=== PATIENT | female | born 1985 | race Caucasian/White ===

== ENCOUNTER 2018-04-05 10:08 | Inpatient (IN) ==
[2018-04-05 12:11] LABS: EOS# 0.02 X1000 (0.0-0.7); EOS% 0.3 % (0.0-10.0); HEMATOCRIT 46.1 % (37.0-47.0); HEMOGLOBIN 15.8 g/dL (12.0-16.0); LYMPH# 2.04 X1000 (1.2-3.4); LYMPH% 26.5 % (20.5-51.1); MCH 31.2 PG (27-31); MCHC 34.3 g/dL (33-37); MCV 90.9 FL (81-99); MONO# 0.47 X1000 (0.11-0.59); MONO% 6.1 % (1.7-9.3); MPV 9.7 FL (7.4-10.4); NEUT# 5.17 X1000 (1.4-6.5); NEUT% 67.1 % (42.2-75.2); PLT 261 X1000 (130-400); RBC 5.07 XMIL (4.2-5.4); RDW 12.5 % (11.5-14.5)
[2018-04-05 12:40] LABS: INR 0.91; PTT 26.6 Seconds (22.3-41.8)
[2018-04-05] MEDS ORDERED: HEPARIN IV ONE (12:58)
--- NOTE | 2018-04-05 13:20 | EKG Report ---
Test Performed on : 04/05/2018 1:03:28 PM Test Reason : sob Blood Pressure : / mmHG Vent. Rate : 064 BPM Atrial Rate : 064 BPM P-R Int : 106 ms QRS Dur : 082 ms QT Int : 416 ms P-R-T Axes : 033 029 011 degrees QTc Int : 429 ms Sinus rhythm. with short [place] Otherwise normal ECG No previous ECGs available Unconfirmed Result
[2018-04-05 13:24] LABS: AGAP 12; ALB/GLOB RATIO 2.1; ALBUMIN 4.4 g/dL (3.5-5.0); ALKALINE PHOSPHATASE 80 U/L (32-104); BUN 10 mg/dL (8-22); CALCIUM 9.5 mg/dL (8.8-10.2); CHLORIDE 103 mmol/L (98-107); COSMO 279; CREATININE 0.8 mg/dL (0.5-0.9); ESTIMATED GFR > 60; GLUCOSE 83 mg/dL (70-104); GOT 15 U/L (10-30); GPT 27 U/L (10-36); POTASSIUM 4.3 mmol/L (3.5-5.1); SODIUM 141 mmol/L (136-145); TCO2 26 mmol/L (25-35); TOTAL BILIRUBIN 0.57 mg/dL (0.20-1.00); TOTAL PROTEIN 6.5 g/dL (6.3-8.3)
--- NOTE | 2018-04-05 14:25 | Diag Imaging Result Doc PS360 ---
EXAM: CT ANGIOGRM PULMONARY ARTERIES HISTORY: pe TECHNIQUE: CT chest with intravenous contrast. Pulmonary arterial protocol with MIP images. COMPARISON: None. FINDINGS: There is normal opacification of the pulmonary arteries and their major branches. No pleural effusions. No thoracic aortic aneurysm or dissection. Heart is mildly enlarged. There are small mediastinal nodes. There is a right subclavian portacatheter. No pneumothorax. No consolidation. No bronchiectasis. No lung mass identified. IMPRESSION: No pulmonary emboli. This exam was performed using automated exposure control, adjustment of mA or kV according to patient size, and/or use of iterative reconstruction technique. Electronically signed by Shahid France 04/05/2018 2:23 PM
[2018-04-05] MEDS ORDERED: ZOFRAN IV PRN (14:46)
[2018-04-05] MEDS ORDERED: DUONEB (A & A) INH PRN (14:46)
--- NOTE | 2018-04-05 14:58 | PROVIDER DOCUMENTATION ---
This chart was entered by Faustina Farley Scribe, acting as scribe for Rosa Meléndez MD. HPI-Cardiac General - General Chief Complaint: General Adult Stated Complaint: BLOOD CLOT NECK/CHEST Time Seen by Provider: 04/05/18 11:18 Source: patient Allergies/Adverse Reactions: Patient Allergies Allergy/AdvReac Type Severity Reaction Status Date / Time Penicillins Allergy ANAPHYLAXIS Verified 03/19/18 09:36 Home Medications: Home Medication List Medication Instructions Recorded Confirmed Last Taken Type Citalopram Hydrobromide [Celexa] 20 mg PO DAILY 03/17/18 03/19/18 03/18/18 20: 00 History Cyanocobalamin (Vitamin B-12) 1,000 mcg IJ Q30D 03/17/18 03/19/18 Unknown History [Cyanocobalamin Injection] Etonogestrel [Nexplanon] 68 mg SQ DIRECTED 03/17/18 03/19/18 03/19/18 09:37 History Omeprazole [Prilosec] 40 mg PO DAILY 03/17/18 03/19/18 03/18/18 20:00 History Trazodone [Desyrel] 100 mg PO QHS 03/17/18 03/19/18 03/18/18 20:00 History Docusate Sodium [Colace] 100 mg PO BID #30 capsule 03/19/18 Unknown Rx Hydrocodone/Acetaminophen [[place] 1 each PO Q6H PRN PRN #20 tablet 03/19/18 Unknown Rx 7.5-325 Tablet] Ondansetron HCl [Zofran] 4 mg PO Q4H PRN PRN #10 tablet 03/19/18 Unknown Rx - History of Present Illness-Cardiac Nature of Presenting Problem: 32 y/o female presents to ED with confirmed DVT to R internal jugular and suspected brachial DVT. Pt reports she had an US this morning. Pt states she has experienced R shoulder/neck pain, headache, R arm weakness, R sided chest pain, SOB, and R arm swelling onset this morning. Pt states she has been on Nexplanon for 2 months. Pt is alert and oriented. Location: reports: other (R internal jugular/brachial DVT) Quality of Pain: reports: fullness, tightness Severity in ED: moderate, severe Onset/Duration: this morning Timing: still present Context/Activities at Onset: reports: none Modifying Factors: improves with: nothing Palpitation Quality: N/A History of arrythmia: reports: none Recent use of:: reports: no stimulants Nitro Today/Relief: reports: no nitro taken today Aspirin Treatment Today: reports: no aspirin today Prior Chest Pain/Cardiac Workup: reports: no prior chest pain, no prior cardiac workup Associated Symptoms: reports: headache, shortness of breath, weakness (R arm) Similar Symptoms Previously?: No Recently Seen Here or By Another Healthcare Provider: No Review of Systems - Adult - REVIEW OF SYSTEMS - ADULT Constitutional: denies: chills, fever Eyes: reports: no symptoms reported Ears, Nose, Mouth & Throat: reports: no symptoms reported Cardiovascular: reports: chest pain (R sided), other (confirmed R internal jugular/possible brachial DVT). denies: palpitations Respiratory: reports: shortness of breath. denies: cough Gastrointestinal: denies: abdominal pain, diarrhea, nausea, vomiting Genitourinary: reports: no symptoms reported Musculoskeletal: reports: joint pain (R shoulder), neck pain (R sided), other ( R arm swelling). denies: back pain Integumentary: reports: no symptoms reported Neurological: reports: headache/migraines, other (weakness R arm). denies: dizziness/vertigo, seizure Psychiatric: reports: no symptoms reported Endocrine: reports: no symptoms reported Hematologic/Lymphatic: reports: no symptoms reported Allergic/Immunologic: reports: no symptoms reported All Other Systems: Reviewed and Negative Past History - Adult - PAST MEDICAL HISTORY-ADULT Review of Records: reports: Old Records Reviewed, Nursing Assessment Review, Medications Reviewed Major Childhood Illnesses: reports: denies history Psychiatric: reports: depression Endocrine/Immune: reports: anemia Other Conditions: reports: other (celiac disease) - PRIOR SURGERIES/PROCEDURES Surgical/Procedure History: reports: indwelling device (port) - IMMUNIZATION STATUS Childhood Immunizations: See Nurse Assessment Flu Vaccine: See Nurse Assessment - FAMILY HISTORY Family History: reviewed, not pertinent - SOCIAL HISTORY Smoking: greater than 1 pack/day Provider spent 3-5 mins advising pt. on dangers of tobacco.: Discussed manners to quit use, and f/u contacts for add'l counseling. Substance Use: none/never Alcohol Use Frequency: never Living Situation: family Physical Exam-General - PHYSICAL EXAM-ADULT Initial Vital Signs Reviewed: Yes - CONSTITUTIONAL General Appearance: appears well, alert, no apparent distress - EYES Eyes: PERRL/EOMI, pink conjunctivae - HEAD, EARS, NOSE, MOUTH & THROAT HENMT: normocephalic/atraumatic, moist mucous membranes, normal ENT inspection - NECK Neck: non-tender, full range of motion - RESPIRATORY Respiratory: chest non-tender, lungs clear, normal breath sounds, no pleuratic chest pain, no respiratory distress, no accessory muscle use - CARDIOVASCULAR Cardiovascular: normal peripheral pulses, regular rate, rhythm - GASTROINTESTINAL (ABDOMEN) Abdominal Exam: normal bowel sounds, non tender, soft - MUSCULOSKELETAL Back Exam: normal inspection, no CVA tenderness Extremity: normal range of motion, non-tender, normal gait, swelling (R arm), other (R arm warm to touch) - SKIN Integumentary: normal color, warm/dry - NEUROLOGIC Neurologic: grossly normal - PSYCHIATRIC Psych/Mental Status: normal mood/affect, normal thought content, normal thought process Progress - PLAN OF CARE/RESULTS Progress/Plan/Lab Results: Vital Signs - 8 hr 04/05/18 10:12 04/05/18 10:27 04/05/18 11:02 Temperature 97.5 F L Pulse Rate 82 70 64 Respiratory Rate 18 20 17 Blood Pressure 122/79 116/87 105/75 O2 Sat by Pulse Oximetry 98 95 95 04/05/18 11:17 04/05/18 11:32 04/05/18 12:09 Temperature Pulse Rate 63 61 Respiratory Rate 17 18 Blood Pressure 109/75 112/78 111/74 O2 Sat by Pulse Oximetry 96 94 L 93 L 04/05/18 12:17 04/05/18 12:32 04/05/18 12:47 Temperature Pulse Rate Respiratory Rate Blood Pressure 106/76 118/75 118/74 O2 Sat by Pulse Oximetry 93 L 95 95 04/05/18 12:50 04/05/18 13:02 04/05/18 13:17 Temperature Pulse Rate 73 Respiratory Rate 22 Blood Pressure 116/86 113/78 O2 Sat by Pulse Oximetry 94 L 95 95 04/05/18 13:30 Temperature Pulse Rate 74 Respiratory Rate 17 Blood Pressure 114/75 O2 Sat by Pulse Oximetry 95 Laboratory Results - last 24 hr 04/05/18 04/05/18 04/05/18 11:52 11:52 11:52 WBC 7.70 RBC 5.07 Hgb 15.8 Hct 46.1 MCV 90.9 MCH 31.2 H MCHC 34.3 RDW Std Deviation 12.5 Plt Count 261 MPV 9.7 Immature Gran % (Auto) 0.0 Neut % (Auto) 67.1 Lymph % (Auto) 26.5 [place] % (Auto) 6.1 Eos % (Auto) 0.3 Baso % (Auto) 0.0 Immature Gran # (Auto) 0.00 Neut # (Auto) 5.17 Lymph # (Auto) 2.04 [place] # (Auto) 0.47 Eos # (Auto) 0.02 Baso # (Auto) 0.00 PT 13.0 INR 0.91 PTT (Actin FS) 26.6 Sodium Potassium Chloride Carbon Dioxide Anion Gap BUN Creatinine Estimated GFR/1.73 m2 BUN/Creatinine Ratio Glucose Calculated Osmolality Calcium Total Bilirubin AST ALT Alkaline Phosphatase Troponin T Total Protein Albumin Globulin Albumin/Globulin Ratio Urine Test NEGATIVE 04/05/18 04/05/18 12:45 12:45 WBC RBC Hgb Hct MCV MCH MCHC RDW Std Deviation Plt Count MPV Immature Gran % (Auto) Neut % (Auto) Lymph % (Auto) [place] % (Auto) Eos % (Auto) Baso % (Auto) Immature Gran # (Auto) Neut # (Auto) Lymph # (Auto) [place] # (Auto) Eos # (Auto) Baso # (Auto) PT INR PTT (Actin FS) Sodium 141 Potassium 4.3 Chloride 103 Carbon Dioxide 26 Anion Gap 12 BUN 10 Creatinine 0.8 Estimated GFR/1.73 m2 > 60 BUN/Creatinine Ratio 13 Glucose 83 Calculated Osmolality 279 Calcium 9.5 Total Bilirubin 0.57 AST 15 ALT 27 Alkaline Phosphatase 80 Troponin T < 0.010 Total Protein 6.5 Albumin 4.4 Globulin 2.1 Albumin/Globulin Ratio 2.1 Urine Test Orders Category Date Time Status Admit - [facility] Routine AdmDCTranf 04/05/18 14:46 Active Nursing- MD Consult Request ROUTINE Care 04/05/18 14:46 Active Update & Confirm Home Medicati ROUTINE Care 04/05/18 14:46 Active Physician/Provider Consults Routine Cons 04/05/18 14:46 Ordered Regular Diet Diet 04/05/18 14:46 Active CTA [CT ANGIOGRM PULMONARY ARTERIES] [CT] Stat Exams 04/05/18 11:26 Completed CBC WITH DIFF [HEME] Stat Lab 04/05/18 11:52 Completed COMPREHENSIVE METABOLIC PANEL [CHEM] Stat Lab 04/05/18 12:45 Completed TEST-URINE [PREG] Stat Lab 04/05/18 11:52 Completed PROTIME WITH INR [COAG] Stat Lab 04/05/18 11:52 Completed PTT [COAG] Stat Lab 04/05/18 11:52 Completed TROPONIN T Stat Lab 04/05/18 12:45 Completed Albuterol 2.5MG/Ipratrop 0.5MG [Duoneb (A & A)] Med 04/05/18 14:46 Active 3 ml INH Q4H PRN PRN Heparin Med 04/05/18 12:58 Discontinued 5,000 unit IV NOW ONE Hydrocodone/APAP 7.5 mg/325 mg [[place]-7.5] Med 04/05/18 14:46 Active See Dose Instructions PO Q4H PRN Ondansetron [Zofran] Med 04/05/18 14:46 Active 4 mg IV Q4H PRN PRN Aerosol Treatments Routine Oth 04/05/18 14:46 Active EKG [EKG] Stat Ther 04/05/18 11:33 Draft Transfer/Admit Order [TRANSFER] Routine Transfer 04/05/18 14:42 Ordered Result Diagrams: 04/05/18 11:52 04/05/18 12:45 - EKG 1 Time of EKG reading by physician:: 13:03 EKG Read and Signed by:: Rosa Meléndez EKG Interpretation (*Must complete 3 of following elements*): Normal Rate: 64 Rhythm: Sinus w/ short [place]: normal QRS: normal NC Interval: shortened ST Wave: normal - CT/MRI 1 CT Study: other (CTA) Impression: Normal (FINDINGS: There is normal opacification of the pulmonary arteries and their major branches. No pleural effusions. No thoracic aortic aneurysm or dissection. Heart is mildly enlarged. There are small mediastinal nodes. There is a right subclavian portacatheter. No pneumothorax. No consolidation. No bronchiectasis. No lung mass identified. IMPRESSION: No pulmonary emboli. This exam was performed using automated exposure control, adjustment of mA or kV according to patient size, and/or use of iterative reconstruction technique. Electronically signed by Shahid France 04/05/2018 2: 23 PM) - CONSULTS/PCP/HOSPITALIST Notification #1 *Consult/PCP/Hospitalist*: MARLYS Tran for hospitalist Time Discussed: 14:00 Reason/Comments: DVT Consult Disposition: Admit Departure - Departure Date of Disposition Decision: 04/05/18 Time of Disposition Decision: 14:56 DIAGNOSIS: Jugular vein thrombosis, right Disposition: ADMITTED INPATIENT 09 Certified Medical Emergency: Emergent Condition: Stable Referrals and Follow-Ups: Garfield Good [Primary Care Provider] - - Critical Care Note This patient required my direct & personal management of CC.: No Attestation - Physician/ GWYN Attestation Patient care was provided by Advanced Practice Provider:: No The physician spent face to face time with patient:: Yes Advanced Practice Provider documentation review:: Supervising physician onsite and consulted in the evaluation and care of this patient. The physician did have a face to face encounter with the patient. This chart was documented by the indicated scribe, (Faustina Farley, Sancho) and accurately reflects the services I performed and decisions made by me, Rosa Meléndez MD, as attested by the provider's signature.
--- NOTE | 2018-04-05 16:08 | HISTORY AND PHYSICAL ---
PRIMARY CARE PROVIDER: Dr. Garfield Good PRIMARY RECORD KEEPER: Dr. Guillermo Luna CHIEF COMPLAINT: Right neck, chest, arm swelling and pain. HISTORY OF PRESENT ILLNESS: Ms. 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 She is followed by Dr. Luna. The reason she had testing was because of frequent sinus infections she was experiencing. On March 19, [address] Jose A Scherer, she had an ultrasound guided, right internal jugular vein port placement. She states yesterday morning she noticed she was having right shoulder pain. She thought she had just woke up after sleeping on it wrong, and then throughout the day more swelling progressed and by this morning she had right neck swelling, felt like it was swelling on the side of her throat along with right arm swelling, and right chest swelling. Pain is 10/10. She does get occasionally short of breath with activity. 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 She was viewed by the nurse practitioner that works there who noticed all the swelling and the discoloration of her arm, sent her for ultrasound which showed a right IJ DVT and right brachial DVT. She has been initiated on heparin push. We will continue with Lovenox subcutaneously and consult Dr. Luna. PAST MEDICAL HISTORY: 1. Insomnia. 2. Depression. 3. Iron deficiency anemia. 4. IgG deficiency with a diagnosis approximately 1 month ago. SURGICAL HISTORY: Right chest port placed. SOCIAL HISTORY: Smokes half of a pack of cigarettes only on the weekends, only drinks alcohol in the summer time and only socially at that time. Denies any illicit drug use. 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 FAMILY HISTORY: Mother had 2 strokes, she also has diabetes and hypertension. Father has hypertension and diabetes. ALLERGIES: Levaquin causes tenderness and penicillin. HOME MEDICATIONS: Have not been verified. REVIEW OF SYSTEMS: A 14-point review of systems was completed and all are negative except as mentioned above and in HPI. PHYSICAL EXAMINATION: VITAL SIGNS: Temperature 97.5. Heart rate 74. Respiratory rate 17. Blood pressure 114/75. O2 saturation 95%. GENERAL: Ms. Wandy France is a 32-year-old female. She is in no acute distress. She is able to answer questions appropriately. HEENT: Atraumatic and normocephalic. Pupils are equal, round and reactive to light. Extraocular movements were intact. Mucous membranes are moist. NECK: Trachea midline. CARDIOVASCULAR: S1, S2, regular rate and rhythm. No rubs, gallops, or murmurs. No lower extremity edema. Right upper extremity swelling, +2 dorsalis and radial pulses. Negative JVD or carotid bruits. PULMONARY: Clear to auscultation with bilateral breath sounds. No accessory muscle use or work of breathing noted. GASTROINTESTINAL: Soft, nontender, nondistended. Positive bowel sounds x4. EXTREMITIES: Moves all extremities equally with full range of motion but swelling noted still in the right upper extremity through the chest and the neck. NEUROLOGICAL: A and O x3. Follows commands. Sensory is intact. SKIN: Warm, dry, and intact. LABORATORY DATA: White blood cells 7000, hemoglobin 15, hematocrit 46, platelet count 261. INR 0.91. PTT 26.6. Sodium 141, potassium 4.3, BUN 10, creatinine 0.8, glucose 83 , calcium 9.5. Bilirubin 0.57, AST 15, ALT 27. Troponin less than 0.01. Albumin 4.4. Urine screening is negative. IMAGING: Pulmonary arteriogram negative for pulmonary emboli. EKG: Normal sinus rhythm, short AL interval, QTC 429, rate 64. ASSESSMENT AND PLAN: 1. Acute right internal jugular deep venous thrombosis and right brachial deep venous thrombosis causing swelling and pain. She has received a heparin bolus of 5000 units and she will start on Lovenox 1 mg/kg q.12, and we will consult Dr. Luna. 2. Iron deficiency anemia. Currently hemoglobin and hematocrit are stable. She receives iron infusions. 3. IgG deficiency. She gets IgG infusion. 4. Insomnia and depression. We will continue home medications once verified. 5. Tobacco abuse. Cessation discussed. Dictated by MARLYS Alvarez for Remi Rosales MD cc: MARLYS Alvarez MD I have seen and examined Ms France today in the ER, a male family member was at the bedside. I have also reviewed her labs and imaging studies. Ms France had a port placed about 2 weeks ago. She now presents with DVT in the right jugular vein. she is started on bid sub Lovenox and Dr Camp has been consulted. DAMON
[2018-04-05] MEDS ORDERED: CYANOCOBALAMIN IM SCH (16:23)
[2018-04-05] MEDS: NORCO-7.5 PO PRN ×2 (16:31→20:40)
[2018-04-05] MEDS: LOVENOX SUBQ SCH (20:40)
[2018-04-06] MEDS: NORCO-7.5 PO PRN ×4 (00:40→20:08)
[2018-04-06] MEDS: CELEXA PO SCH ×2 (02:15→21:28)
[2018-04-06] MEDS: DESYREL PO SCH ×2 (02:19→21:28)
[2018-04-06] MEDS: NS 1,000 ML IV SCH ×3 (03:44→19:58)
[2018-04-06 05:51] LABS: EOS# 0.01 X1000 (0.0-0.7); EOS% 0.2 % (0.0-10.0); HEMOGLOBIN 13.1 g/dL (12.0-16.0); LYMPH# 1.98 X1000 (1.2-3.4); LYMPH% 35.6 % (20.5-51.1); MCH 31.1 PG (27-31); MCHC 33.6 g/dL (33-37); MCV 92.6 FL (81-99); MONO# 0.54 X1000 (0.11-0.59); MONO% 9.7 % (1.7-9.3); MPV 9.8 FL (7.4-10.4); NEUT# 3.03 X1000 (1.4-6.5); NEUT% 54.5 % (42.2-75.2); PLT 245 X1000 (130-400); RBC 4.21 XMIL (4.2-5.4); RDW 12.1 % (11.5-14.5); WBC 5.56 X1000 (4.8-10.8)
[2018-04-06 05:55] LABS: INR 0.97; PROTIME 13.7 Seconds (11.0-16.0)
[2018-04-06 05:56] LABS: PTT 36.6 Seconds (22.3-41.8)
[2018-04-06 06:04] LABS: AGAP 9; ALB/GLOB RATIO 1.5; ALKALINE PHOSPHATASE 80 U/L (32-104); BUN 11 mg/dL (8-22); CALCIUM 8.6 mg/dL (8.8-10.2); CHLORIDE 104 mmol/L (98-107); COSMO 278; CREATININE 0.8 mg/dL (0.5-0.9); ESTIMATED GFR > 60; GLUCOSE 89 mg/dL (70-104); GOT 14 U/L (10-30); GPT 22 U/L (10-36); POTASSIUM 4.4 mmol/L (3.5-5.1); SODIUM 140 mmol/L (136-145); TCO2 27 mmol/L (25-35); TOTAL BILIRUBIN 0.53 mg/dL (0.20-1.00); TOTAL PROTEIN 6.7 g/dL (6.3-8.3)
[2018-04-06] MEDS: PRILOSEC PO SCH (06:25)
[2018-04-06] MEDS: LOVENOX SUBQ SCH (08:18)
[2018-04-06] MEDS: XARELTO PO SCH (18:09)
[2018-04-07 06:35] LABS: HEMATOCRIT 35.3 % (37.0-47.0); LYMPH% 32.1 % (20.5-51.1); MCH 31.3 PG (27-31); MCV 91.9 FL (81-99); MONO# 0.35 X1000 (0.11-0.59); MONO% 7.5 % (1.7-9.3); MPV 9.8 FL (7.4-10.4); NEUT# 2.82 X1000 (1.4-6.5); NEUT% 60.4 % (42.2-75.2); PLT 234 X1000 (130-400); RBC 3.84 XMIL (4.2-5.4); WBC 4.67 X1000 (4.8-10.8)
[2018-04-07] MEDS: NS 1,000 ML IV SCH (06:42)
[2018-04-07] MEDS: PRILOSEC PO SCH (06:43)
[2018-04-07] MEDS: NORCO-7.5 PO PRN ×4 (06:44→22:05)
[2018-04-07 07:12] LABS: AGAP 9; BUN 6 mg/dL (8-22); CALCIUM 8.6 mg/dL (8.8-10.2); CHLORIDE 108 mmol/L (98-107); COSMO 282; CREATININE 0.7 mg/dL (0.5-0.9); ESTIMATED GFR > 60; GLUCOSE 88 mg/dL (70-104); POTASSIUM 4.1 mmol/L (3.5-5.1); SODIUM 143 mmol/L (136-145); TCO2 26 mmol/L (25-35)
[2018-04-07] MEDS: XARELTO PO SCH ×2 (09:08→17:51)
[2018-04-07] MEDS ORDERED: LASIX IV ONE (13:42)
[2018-04-07] MEDS ORDERED: ETONOGESTREL 68 MG SQ SCH (14:07)
[2018-04-07] MEDS ORDERED: PATIENT'S OWN MED PRN (14:15)
--- NOTE | 2018-04-07 14:29 | PROGRESS NOTE ---
DATE: 04/07/2018 SUBJECTIVE: The patient reports continues to be short of breath. We informed that patient that we have checked for pulmonary embolism and that exam was negative. The patient reports that she was breathing better, but getting short of breath during the last 24 hours. We have checked O2 saturation at rest and it drops to 85% with no oxygen. OBJECTIVE: Vital Signs: Temperature 97.9 degrees, heart rate 69, respiratory rate 19, blood pressure 110/63, O2 saturation 94% on 2 L nasal cannula. General: This is a 32-year-old female lying in bed, in no acute distress. Cardiovascular: S1 and S2 heard. No murmurs, gallops, or rub. Regular rate and rhythm. Respiratory: There is minimal wheezing in both pulmonary bases. Patient not using any accessory muscles or having work of breathing. Abdomen: Soft. Nontender to palpation. Bowel sounds present. No organomegaly. Extremities: No clubbing, cyanosis, or edema. Peripheral pulses present in both legs. There is a small swelling at the area of the right shoulder. Neurological: Patient alert and oriented x3. Moves 4 extremities. LABORATORY DATA: Reviewed. ASSESSMENT AND PLAN: 1. Acute right internal jugular deep venous thrombosis with right brachial deep venous thrombosis. At this point, the patient is getting more short of breath, so she requests to have another scan to see if a blood clot is present, concerned that she was not requiring any oxygen supplementation and now she is on 2 to 3 L of oxygen by nasal cannula. The patient is on Xarelto. Will continue with the same management. Will see what the CT scan shows. 2. IgE deficiency. Aware. 3. Iron-deficiency anemia. Hemoglobin is stable. Will continue with iron supplementation. DISPOSITION: Will transfer this patient to the [facility]. cc: MD DAMON Flower
[2018-04-07] MEDS: DUONEB (A & A) INH SCH ×3 (15:30→23:15)
--- NOTE | 2018-04-07 15:46 | Diag Imaging Result Doc PS360 ---
CT ANGIOGRM PULMONARY ARTERIES - 04/07/2018 INDICATION: PE suspected TECHNIQUE: Axial CT images were obtained after administering intravenous contrast. Coronal MIP images were generated. COMPARISON: 04/05/2018 FINDINGS: There is no pulmonary embolism. Stable right chest port in good position. There is a trace right pleural effusion with some dependent atelectasis. There is also some basilar atelectasis on the left side. Heart size is normal. Upper abdominal images are unremarkable. IMPRESSION: Negative for pulmonary embolism. Trace right pleural effusion. Bilateral dependent atelectasis. This exam was performed using automated exposure control, adjustment of mA or kV according to patient size, and/or use of iterative reconstruction technique Electronically signed by Nasim Morgan 04/07/2018 3:44 PM
[2018-04-07] MEDS ORDERED: DUONEB (A & A) INH PRN (18:41)
[2018-04-07] MEDS: DESYREL PO SCH (20:09)
[2018-04-07] MEDS: CELEXA PO SCH (20:09)
--- NOTE | 2018-04-08 00:48 | HEMO/ONC CONSULTATION ---
DATE: 04/06/2018 ADMITTING PHYSICIAN: Dr. Rosales. REQUESTING PHYSICIAN: Dr. Rosales. We appreciate this consult. CHIEF COMPLAINT: DVT. HISTORY OF PRESENT ILLNESS: Ms. Wandy France is a 32-year-old female, well-known to Dr. Luna, with a history of IVIg deficiency and iron deficiency anemia. The patient recently underwent port placement, and states that she began to have right neck, right shoulder, and right arm swelling. She presented to clinic for evaluation, and was sent for ultrasound of the right upper extremity, which revealed acute right internal jugular DVT, and right brachial DVT. The patient was referred to [facility] Emergency Department for potential admission. We are consulted for the same. PAST MEDICAL HISTORY: 1. Insomnia. 2. Depression. 3. Iron deficiency anemia. 4. IgG deficiency, recently diagnosed. PAST SURGICAL HISTORY: Right chest port placement. SOCIAL HISTORY: The patient smokes 1/2 pack of cigarettes daily. She drinks alcohol socially. She does not use illicit drugs. FAMILY HISTORY: Family history is negative for any hematologic or oncologic disease. MEDICATIONS ON ADMISSION: 1. B12 injections. 2. Celexa. 3. Lidocaine/prilocaine topical cream. 4. Nexplanon subdermal implant. 5. Omeprazole. 6. Trazodone. 7. Vitamin D3. ALLERGIES: Clindamycin, Levaquin, and penicillins. REVIEW OF SYSTEMS: A 14-point review of systems was obtained, and is negative, except for mentioned in the HPI. PHYSICAL EXAMINATION: General: Ms. France is a pleasant 32-year-old female, lying supine in bed, in no immediate distress. Vital Signs: Temperature 97.9 degrees, blood pressure 95/65, heart rate 63, respirations 12, oxygen saturation 93% on room air. HEENT: Normocephalic, atraumatic. Mucous membranes pink and moist. Sclerae anicteric. Extraocular movements intact. Neck: Supple, with some swelling to the right neck. Lungs: Clear to auscultation bilaterally. Chest expansion equal bilaterally. Cardiovascular: S1, S2 is heard. No murmurs, rubs, or gallops. Abdomen: Nondistended. Extremities: No clubbing or cyanosis. The patient does have right upper extremity 1+ edema. Dermatologic: No rashes, bruises, or lesions. Neurologic: The patient is awake, alert, and oriented x3. She has no focal deficit. LABS: PT 13.7, PTT 36.6, INR 0.97. Hemoglobin 13.1, hematocrit 39.0, white blood cell count is 5.56, and platelets 245,000. Sodium 140, potassium 4.4, chloride 104, CO2 is 27, BUN 11, creatinine 0.8, and glucose is 89. Calcium 8.6, magnesium 2.0, and LFTs are within normal limits. ASSESSMENT AND PLAN: 1. Acute right internal jugular deep venous thrombosis/right brachial deep venous thrombosis. The patient has been started on therapeutic Lovenox. We will continue to monitor at this time, and likely switch to Xarelto p.o. prior to discharge. 2. IgG deficiency. The patient remains on IVIG replacement. Her last IVIG treatment was in March. 3. Iron-deficiency anemia. Hemoglobin stable at 13.1. Last iron saturation in March was within normal limits. 4. Tobacco abuse. We will continue to encourage cessation. 5. We will follow along with you and make further recommendations pending outcomes. The above reflects the history, exam, assessment, and plan of Dr. Luna. Dictated by MARLYS Grullon for Guillermo Luna MD cc: MARLYS Grullon MD
[2018-04-08] MEDS: DUONEB (A & A) INH SCH ×4 (03:10→15:57)
[2018-04-08] MEDS: NORCO-7.5 PO PRN (03:46)
[2018-04-08] MEDS: PRILOSEC PO SCH (06:02)
--- NOTE | 2018-04-08 08:27 | Diag Imaging Result Doc PS360 ---
CHEST-2 VIEWS - 04/08/2018 INDICATION: pleural effusion COMPARISON: CT from 04/07/2018 FINDINGS: The lungs are normally expanded and clear. Heart size and mediastinal contours are normal. No pneumothorax or pleural effusion. There is a right chest port in good position. IMPRESSION: Negative exam. Electronically signed by Nasim Morgan 04/08/2018 8:25 AM
[2018-04-08] MEDS: XARELTO PO SCH (08:32)
[2018-04-08 12:31] VITALS: BP 103/63
--- NOTE | 2018-04-08 13:48 | ECHO REPORT ---
ORDER DATE: 04/07/2018 PROCEDURE: A 2D echocardiogram. ECHOCARDIOGRAPHIC MEASUREMENTS: 1. Interventricular septum 0.8. 2. Left ventricular posterior wall 0.9. 3. Diastolic diameter 5.2. 4. Left ventricular systolic diameter 3.0. 5. Left atrium 3.1. 6. Aorta 3.0. SUMMARY: 1. Mitral valve was normal. 2. Tricuspid valve was normal. 3. Aortic valve leaflets were trileaflet. 4. Pulmonic valve was normal. 5. Normal left ventricular cavity size. Estimated ejection fraction of 65%. 6. By Doppler studies, there is no aortic stenosis or regurgitation. 7. There is trace to mild mitral regurgitation. 8. Mild tricuspid regurgitation. Peak velocity across the tricuspid valve was 2.6 m/sec. 9. There is no pericardial effusion or obvious intracardiac mass or thrombus seen. cc: MD Erick Quarles MD
--- NOTE | 2018-04-11 05:17 | DISCHARGE SUMMARY ---
ADMISSION DATE: 04/05/2018 DISCHARGE DATE: 04/08/2018 DISCHARGE DIAGNOSES: 1. Acute right internal jugular DVT. 2. Acute right brachial DVT. 3. Iron-deficiency anemia. 4. IgE deficiency. 5. Insomnia and depression. 6. Tobacco abuse. CONSULTATION: Dr. Guillermo Luna from Hematology/Oncology. PROCEDURES: 1. Pulmonary arteriogram done on admission showed no pulmonary emboli that was done on 04/05/2018. 2. Pulmonary arteriogram done on 04/07/2018 showed negative for pulmonary embolism. Trace right pleural effusion with bilateral dependent atelectasis. 3. Echocardiogram Doppler basically showed ejection fraction of 65%. No pericardial effusion or obvious intracardiac mass or thrombus seen. No grossly valvular abnormalities noted. 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 She referred having had on 03/19 on port placement performed by Dr. Scherer. She went to the emergency department because she noticed she is having right shoulder pain, and also some right neck swelling so she was evaluated here in the ER. She was found to have a DVT in that area. She was admitted to the hospital because she was complaining of chest pain, swelling and difficulty in breathing. We have done a CT angiogram of pulmonary arteries which ruled out PE. I went to see this patient the next day after admission, and she was very nervous, and thinks that she is not feeling well. We will see if there is any compromise of the lung with this DVT. I did think that we do not need to repeat that test considering her clinical situation. The next day because she said that she was feeling very short of breath, and also because it was documented that her O2 saturation was dropped to 88 on room air, we decided to agreed with her request to do a CT of the chest again which basically did not show any pulmonary embolism again. I explained to her that she may be feeling anxious, but I do not think that we are missing any pulmonary embolism so she is going to be discharged in stable condition. DISCHARGE PHYSICAL EXAMINATION: Vitals: Temperature 99 degrees, heart rate 78 , respiratory rate 16, blood pressure 103/63, and O2 saturation 98% on 2 L on room air. General: This is a 32-year- old female lying in bed in no acute distress. HEENT: Head is normocephalic, atraumatic. There is a little bit of swelling in the right shoulder. Neck: No JVD noted. No carotid bruits. No lymphadenopathy. Cardiovascular: S1 and S2 heard. No murmurs, gallops, or rubs. Regular rate and rhythm. Respiratory: Clear bilaterally to auscultation. No work of breathing or using accessory muscles. Abdomen: Soft and nontender. The patient had bowel sounds present. No organomegaly. Extremities: No clubbing, cyanosis or edema. Peripheral pulses present in both legs. Neurological: Patient alert and oriented x3. Moves all 4 extremities. DISCHARGE DISPOSITION: Home to self-care. TIME SPENT: 33 minutes. LIST OF MEDICATIONS: 1. Xarelto 50 mg 1 tablet p.o. b.i.d. for 20 days and then Xarelto 20 mg 1 tablet p.o. b.i.d. for at least 3 to 6 months. 2. Hammond 5 mg 1 tablet p.o. every 6 hours as needed for pain. 3. Celexa 40 mg 1 tablet p.o. at bedtime. 4. Cyanocobalamin injection 1 injection per month. 5. Duloxetine 60 mg daily. 6. Trazodone 100 mg 1 tablet p.o. at bedtime. 7. Omeprazole 20 mg 1 tablet p.o. at bedtime. cc: Erick Nix MD MTDD
== END 2018-04-08 16:19 | disposition home or self-care (01) | DRG 300 ==
LOC: ED 10:08 → EDIPHOLD 10:09 → SUATTDRO 10:09 → 4N 20:38 → EDIPHOLD 21:12 → 3S 04-07 18:04
PROVIDERS: ATTEND Internal Medicine
CPT/HCPCS: 71020; 71046; 71275; 80048; 80053; 81025; 83735; 84484; 85025; 85610; 85730; 93005; 93306; 94640; 94761; 94799; 96361; 96372; 96374; 96375; 99285; A9270; J1644; J1650; J1940; J2405; J3420; J7030; Q9967